=== PATIENT | male | born 1990 | race Caucasian/White ===

== ENCOUNTER 2016-05-17 01:55 | Emergency (ER) | payer OTHER ==
[~2016-05-17] VITALS: Ht 175.3 cm; Wt 81.6 kg
[2016-05-17 02:52] LABS: Urine Bilirubin Negative (Negative); Urine Blood Negative /uL (Negative); Urine Color Colorless (Yellow); Urine Glucose Normal (Normal); Urine Ketone Negative (Negative); Urine Mucus FEW (None Seen); Urine Nitrite Negative (Negative); Urine RBC <1 /hpf (0 - 3); Urine Urobilinogen Normal (Negative)
[2016-05-17 02:55] LABS: Basophils # (auto) 0.2 uL; Basophils % (auto) 4.3 % (0.0-2.0); DEFINITIVE VIEW TRANSMISSION; Eosinophils # (auto) 0 uL; Eosinophils % (auto) 0.8 % (0.0-7.0); Hematocrit 44.5 % (41.0-53.0); Hemoglobin 14.8 g/dL (13.5-17.5); Lymphocytes # (auto) 1.8 uL; Lymphocytes % (auto) 35.6 % (10.0-50.0); Mean Corpuscular Hemoglobin 29.9 pg (28.0-32.0); Mean Corpuscular Hgb Conc. 33.3 g/dL (32.0-36.0); Mean Corpuscular Volume 89.9 fL (80.0-100.0); Mean Platelet Volume 8.8 fL (7.4-10.4); Monocytes # (auto) 0.5 uL; Monocytes % (auto) 9.1 % (0.0-12.0); Neutrophils # (auto) 2.6 uL; Neutrophils % (auto) 50.2 % (37.0-80.0); Platelet Count (auto) 244 10^3/uL (140-450); Red Cell Distribution Width 11.5 % (11.6-16.0); White Blood Cell 5.1 10^3/uL (4.4-10.8)
[2016-05-17 03:00] LABS: Albumin 4.7 g/dL (3.4-5.0); BUN/Creatinine Ratio 13.9; Calcium 8.3 mg/dL (8.5-10.1); Magnesium 2.5 mg/dL (1.6-2.6); Potassium 4.1 mmol/L (3.5-5.1)
[2016-05-17 03:03] LABS: Bilirubin, Total 0.4 mg/dL (0.2-1.0); Total Protein 7.9 g/dL (6.4-8.2)
[2016-05-17 03:12] LABS: Salicylate < 1.7 mg/dL (2.8-20.0)
[2016-05-17 03:14] LABS: Acetaminophen < 2.0 ug/mL (10-30)
[2016-05-17] MEDS ORDERED: LORazepam 2MG/ML-1ML VIAL ONE (06:09)
[2016-05-17] MEDS ORDERED: LORazepam 2MG/ML-1ML VIAL IV ONE ×3 (06:45→13:00)
[2016-05-17] MEDS ORDERED: SODIUM CHLORIDE 0.9% 1,000 ML IV ONE ×2 (08:13→21:15)
[2016-05-17] MEDS ORDERED: THIAMINE INJ 100 MG, MULTIPLE VITAMIN 10 ML, FOLIC ACID 1 MG, MAGNESIUM SULF SDV 50% 8 ... IV ONE ×5 (08:15)
[2016-05-17] MEDS ORDERED: BANANA BAG KIT 1 EA IV ONE (08:43)
[2016-05-17 20:31] LABS: Basophils # (auto) 0 uL; Basophils % (auto) 0.1 % (0.0-2.0); Eosinophils # (auto) 0 uL; Eosinophils % (auto) 0.2 % (0.0-7.0); Hematocrit 37.9 % (41.0-53.0); Lymphocytes # (auto) 0.8 uL; Lymphocytes % (auto) 9.1 % (10.0-50.0); Mean Corpuscular Hemoglobin 30.5 pg (28.0-32.0); Mean Corpuscular Hgb Conc. 34.4 g/dL (32.0-36.0); Mean Corpuscular Volume 88.8 fL (80.0-100.0); Monocytes # (auto) 0.8 uL; Neutrophils # (auto) 6.8 uL; Neutrophils % (auto) 81.6 % (37.0-80.0); Platelet Count (auto) 264 10^3/uL (140-450); Red Cell Distribution Width 12.7 % (11.6-16.0); White Blood Cell 8.4 10^3/uL (4.4-10.8)
[2016-05-17 21:39] LABS: Albumin 4.1 g/dL (3.4-5.0); BUN/Creatinine Ratio 9.2; Bilirubin, Total 0.9 mg/dL (0.2-1.0); Calcium 8.5 mg/dL (8.5-10.1); Potassium 4.1 mmol/L (3.5-5.1); Total Protein 7.1 g/dL (6.4-8.2)
[2016-05-17] MEDS ORDERED: ZOLPIDEM TARTRATE 5 MG TAB PO ONE (22:00)
[2016-05-18] MEDS ORDERED: LORazepam 0.5 MG TAB PO PRN (05:30)
[2016-05-18] MEDS ORDERED: HALOPERIDOL 5 MG TAB PO PRN (05:30)
[2016-05-18 10:22] VITALS: BP 138/76
== END 2016-05-18 11:08 | disposition home or self-care (01) ==
LOC: ER 02:05
DX: T43.202A Poisoning by unspecified antidepressants, intentional self-harm, initial encounter (principal); F32.9 Major depressive disorder, single episode, unspecified; F41.9 Anxiety disorder, unspecified; R25.1 Tremor, unspecified; F43.10 Post-traumatic stress disorder, unspecified; X58.XXXA Exposure to other specified factors, initial encounter; Y93.89 Activity, other specified; Y99.8 Other external cause status; Y92.89 Other specified places as the place of occurrence of the external cause
CPT/HCPCS: 36415; 71010; 80053; 80320; 80329; 81001; 82962; 83735; 85025; 93005; 94761; 96361; 96365; 96366; 96375; 96376; 99285; G0434; J2060; J3411; J3475; J7030

== ENCOUNTER 2017-09-13 06:22 | Emergency (ER) | payer SELFPAY ==
[~2017-09-13] VITALS: Ht 175.3 cm; Wt 79.4 kg
[2017-09-13 06:33] VITALS: BP 133/75
== END 2017-09-13 07:31 | disposition left against medical advice (07) ==
LOC: ER 06:25
DX: S01.85XA Open bite of other part of head, initial encounter (principal); Z53.21 Procedure and treatment not carried out due to patient leaving prior to being seen by health care provider; W57.XXXA Bitten or stung by nonvenomous insect and other nonvenomous arthropods, initial encounter; Y93.89 Activity, other specified; Y92.89 Other specified places as the place of occurrence of the external cause; Y99.8 Other external cause status

== ENCOUNTER 2019-07-29 17:25 | Emergency (ER) | payer OTHER ==
[~2019-07-29] VITALS: Ht 175.3 cm; Wt 90.7 kg
[2019-07-29 17:32] VITALS: BP 125/74
[2019-07-29] MEDS ORDERED: LIDOCAINE W/ EPINEPHRINE 1% 20ML VIAL ID ONE (18:30)
[2019-07-29] MEDS ORDERED: cefTRIAXone SOD 1,000 MG VL IM ONE (18:30)
[2019-07-29] MEDS ORDERED: TETANUS-DIPTH-ACEL PERTUSSIS 0.5ML SYR Tdap IM ONE (18:45)
[2019-07-29] MEDS ORDERED: BACITRACIN TOP OINT 1 UD PKG TOP ONE (19:15)
== END 2019-07-29 19:18 | disposition home or self-care (01) ==
LOC: ER 17:25
DX: S81.812A Laceration without foreign body, left lower leg, initial encounter (principal); W23.0XXA Caught, crushed, jammed, or pinched between moving objects, initial encounter; Y93.61 Activity, american tackle football; Y92.39 Other specified sports and athletic area as the place of occurrence of the external cause; Y99.8 Other external cause status
CPT/HCPCS: 12002; 73590; 90471; 90715; 96372; 99284; J0696

== ENCOUNTER 2019-08-05 09:08 | Emergency (ER) | payer OTHER ==
[~2019-08-05] VITALS: Ht 175.3 cm; Wt 90.7 kg
[2019-08-05 09:22] VITALS: BP 129/89
== END 2019-08-05 09:39 | disposition home or self-care (01) ==
LOC: ER 09:08
DX: S81.812D Laceration without foreign body, left lower leg, subsequent encounter (principal); X58.XXXD Exposure to other specified factors, subsequent encounter